=== PATIENT | female | born 1955 | race African-American/Black ===

== ENCOUNTER → 2017-12-01 | Outpatient (CLI) | payer OTHER | LOC: M RAD 12:53 | DX: Z12.31 Encounter for screening mammogram for malignant neoplasm of breast (principal) | CPT/HCPCS: 77067 ==

== ENCOUNTER → 2017-12-16 | Outpatient (CLI) | payer OTHER | LOC: M PLARAD 13:43 | DX: G43.909 Migraine, unspecified, not intractable, without status migrainosus (principal) | CPT/HCPCS: 70551 ==

== ENCOUNTER 2018-01-10 11:51 | Day surgery (SDC) | payer OTHER ==
[2018-01-10] MEDS: NS 1,000 ML IV (12:29)
[2018-01-10] MEDS ORDERED: PROPOFOL 500 MG/50 ML VIAL As Ordered (12:53)
[2018-01-10] MEDS ORDERED: LIDOCAINE 2% INJ 100 MG/5 ML SDV (FOR ANES.) As Ordered (12:53)
== END 2018-01-10 13:46 | disposition home or self-care (01) ==
LOC: M OPP 11:51
DX: Z12.11 Encounter for screening for malignant neoplasm of colon (principal); Z86.010 Personal history of colon polyps; D12.5 Benign neoplasm of sigmoid colon; K64.0 First degree hemorrhoids; I10 Essential (primary) hypertension; E03.9 Hypothyroidism, unspecified; K21.9 Gastro-esophageal reflux disease without esophagitis; R12 Heartburn; D56.9 Thalassemia, unspecified; M19.90 Unspecified osteoarthritis, unspecified site; M35.00 Sjogren syndrome, unspecified; G43.909 Migraine, unspecified, not intractable, without status migrainosus; Z78.0 Asymptomatic menopausal state; G47.30 Sleep apnea, unspecified; Z91.041 Radiographic dye allergy status; Z88.3 Allergy status to other anti-infective agents; Z88.8 Allergy status to other drugs, medicaments and biological substances; Z91.013 Allergy to seafood; Z79.82 Long term (current) use of aspirin; Z79.899 Other long term (current) drug therapy; Z80.3 Family history of malignant neoplasm of breast; Z80.0 Family history of malignant neoplasm of digestive organs
CPT/HCPCS: 45385

== ENCOUNTER → 2018-12-28 | Outpatient (CLI) | payer OTHER ==
[~2018-12-28] MED LIST: AMLO10TA PO; ASPI81TA26 PO; LEVO112T2 PO; METO50TA7 PO; MICA80TA PO; OMEP20CA4 PO; TOPA100T12 PO; VITA100067 PO
--- NOTE | 2018-12-28 14:04 | REPMRS ---
Patient History The patient states she has not had a clinical breast exam in over a year. Patient is postmenopausal. Family history of endometrial cancer at age 56 in sister, unknown cancer at age 53 in brother. Took estrogen for 7 months. 3D TOMOSYNTHESIS WAS PERFORMED. [facility] for breast cancer is 6.6%. Digital Mammo Screening Bilat: December 28, 2018 - Exam #: [id number] Bilateral CC and MLO view(s) were taken. Technologist: Gita Mcgee, Technologist Prior study comparison: December 01, 2017, bilateral digital mammo screening bilat performed at [facility]. March 19, 2015, bilateral digital mammo screening bilat performed at [facility]. FINDINGS: There are scattered fibroglandular densities. There has been no change in the appearance of the mammogram from the prior studies. There is a mild amount of residual fibroglandular tissue which is fairly symmetric. There is no interval development of dominant mass, architectural distortion, or clustered microcalcification suggestive of malignancy. Assessment: BI-RADS/ACR category 1 mammogram. Negative Mammogram. Recommendation Routine screening mammogram in 1 year (for women over age 40). This mammogram was interpreted with the aid of an FDA-approved computer-aided dectection system. Electronically Signed By: Gerson Murphy MD 12/28/18 [id number]
== END ==
LOC: M RAD 12-22 10:31
PROVIDERS: ATTEND Physician Assistant Medical
DX: Z12.31 Encounter for screening mammogram for malignant neoplasm of breast (principal); Z80.49 Family history of malignant neoplasm of other genital organs

== ENCOUNTER 2019-12-03 13:00 | Day surgery (SDC) | payer OTHER ==
[~2019-12-03] VITALS: Ht 162.6 cm; Wt 60.7 kg
[~2019-12-03 13:00] MED LIST changes: +DROX200C PO; +GABA-843 PO; +LEVO100T5 PO; +OMEP1CAP73 PO; -OMEP20CA4 PO; +SPIR-10 PO
[2019-12-03] MEDS ORDERED: NS 1,000 ML IV ONE (13:45)
[2019-12-03 15:35] VITALS: BP 168/96
--- NOTE | 2019-12-19 11:30 | ROOR ---
Patient Name: Michelle Johnson Procedure Date: 12/03/2019 2:45 PM Date of : 1955 Age: 64 Room: [facility] Gender: Female Note Status: Social Human Services Assistants Override Procedure: Upper GI endoscopy + Balloon Dilatation Indications: Dysphagia Providers: William Smalls MD Referring MD: Katie HAYNES [facility] Katie HAYNES [facility], Admin. Requesting Provider: Medicines: Monitored Anesthesia Care Complications: No immediate complications. Procedure: Pre-Anesthesia Assessment: - The heart rate, respiratory rate, oxygen saturations, blood pressure, adequacy of pulmonary ventilation, and response to care were monitored throughout the procedure. - The heart rate, respiratory rate, oxygen saturations, blood pressure, adequacy of pulmonary ventilation, and response to care were monitored throughout the procedure. The Endoscope was introduced through the mouth, and advanced to the second part of duodenum. The upper GI endoscopy was accomplished without difficulty. The patient tolerated the procedure well. Findings: The Z-line was irregular and was found 40 cm from the incisors. No other significant abnormalities were identified in a careful examination of the stomach. The exam of the duodenum was otherwise normal. A TTS dilator was passed through the scope. Dilation with a 12-13.5-15 mm balloon dilator was performed to 15 mm in the entire esophagus. The exam was otherwise without abnormality. Impression: - Z-line irregular, 40 cm from the incisors. - The examination was otherwise normal. - Dilation performed in the entire esophagus. - No specimens collected. - The examination was otherwise normal. Recommendation: - Patient has a contact number available for emergencies. The signs and symptoms of potential delayed complications were discussed with the patient. Return to normal activities tomorrow. Written discharge instructions were provided to the patient. - Discharge patient to home. - Follow an antireflux regimen. - Full liquid diet for 1 day. - Soft diet for 2 days, then advance as tolerated to resume previous diet. - Continue present medications. - Return to GI office in 2 months. - The findings and recommendations were discussed with the patient. William Smalls MD William Smalls MD 12/03/2019 2:58:37 PM Number of Addenda: 0 Note Initiated On: 12/03/2019 2:45 PM Estimated Blood Loss: Estimated blood loss: none.
== END 2019-12-03 15:40 | disposition home or self-care (01) ==
LOC: M OPP 13:00
PROVIDERS: ATTEND Internal Medicine Gastroenterology
DX: K22.8 Other specified diseases of esophagus (principal); R13.10 Dysphagia, unspecified; I10 Essential (primary) hypertension; G47.30 Sleep apnea, unspecified; Z79.82 Long term (current) use of aspirin; Z79.899 Other long term (current) drug therapy; Z88.8 Allergy status to other drugs, medicaments and biological substances; Z91.018 Allergy to other foods

== ENCOUNTER → 2020-02-27 | Outpatient (CLI) | payer OTHER ==
--- NOTE | 2020-02-29 23:46 | ECWPNPC ---
PATIENT NAME: KYLEIGH SKINNER : 1955 GENDER: FEMALE VISIT DATE: 02/27/2020 DISCHARGE DATE: 02/27/20 1149 VISIT LOCKED DATE TIME: PHYSICIAN: TSERING CORREA RESOURCE: TSERING CORREA REASON FOR APPOINTMENT 1. LEFT KNEES HISTORY OF PRESENT ILLNESS DEPRESSION SCREENING: PHQ-2 (2015 EDITION) LITTLE INTEREST OR PLEASURE IN DOING THINGS?NOT AT ALL FEELING DOWN, DEPRESSED, OR HOPELESS?NOT AT ALL TOTAL SCORE0 GENERAL: 64-YEAR-OLD FEMALE REFERRED BY [facility] FOR LEFT KNEE PAIN. HAD LEFT TOTAL KNEE REPLACEMENT APPROXIMATELY ONE YEAR AGO. REPORTING INTERMITTENT EPISODES 1 TIME A WEEK APPROXIMATELY OF LOCKING SENSATION WHEN SHE IS WALKING. ALSO COMPLAINING OF INTERMITTENT ACHING. PAIN IS AGGRAVATED BY PROLONGED WALKING OR STANDING. ALSO COMPLAINING OF NUMBNESS OVER THE LEFT KNEE. PAIN DOES NOT AWAKEN PATIENT AT NIGHT. CHIEF AREA OF PAIN IS ACTUALLY HER NECK BUT SHE IS NOT REFERRED HERE FOR THAT. SHE IS SCHEDULED FOR RIGHT KNEE TOTAL REPLACEMENT IN A FEW DAYS. DISCUSSED POSSIBILITY OF TRYING NERVE BLOCKS FOR HER CHRONIC LEFT KNEE PAIN. SHE WOULD LIKE TO THINK ABOUT THIS AND FOLLOW-UP WITH US AFTER RIGHT KNEE SURGERY. - - -. FALL RISK SCREENING: SCREENING :NO FALLS REPORTED IN THE LAST YEAR PAIN SCREENING: PATIENT HAS A COMPLAINT OF ACUTE OR CHRONIC PAIN :YES LOCATION OF PAIN:KNEES LEFT KNEE INTENSITY OF PAIN (SCALE OF 1 TO 10):7 WHAT DOES YOUR PAIN FEEL LIKE:ACHING, SHARP DULL ACHE DURATION:CONTINOUS PAIN IS INCREASED BY:ACTIVITIES, PROLONGED STANDING PAIN IS DECREASED BY:OTHERS ELEVATING THE KNEE, PAIN CREAM NURSING NOTE: - - -. PAIN CENTER INTAKE QUESTIONS: DO YOU HAVE A HISTORY OF MRSA? :NO DO YOU TAKE A BLOOD THINNERS? :NO DO YOU HAVE ANY BLEEDING DISORDERS? :NO ANY NEW NUMBNESS OR WEAKNESS IN YOUR LEGS OR ARMS? :YES LEFT ARM HEAVINESS/WEAKNESS AND NUMBNESS ANY PACEMAKER,DEFIBRILLATOR, OR DORSAL COLUMN STIMULATOR? :NO DO YOU HAVE ANY RASHES OR OPEN SORES? :NO ARE YOU ALLERGIC TO IV DYE? :YES ALLERGIC TO IODINE ARE YOU DIABETIC? :NO ANY NEW PROBLEMS WITH YOUR MEDICATIONS? :NO HAVE YOU RECEIVED A VACCINE IN THE PAST 30 DAYS? :YES IF SO WHAT VACCINE AND WHEN? FLU VACCINE BEGINNING OF JANUARY DO YOU PLAN TO RECEIVE A VACCINE IN THE NEXT 21 DAYS? :NO DO YOU NEED ANY PRESCRIPTION? :NO DO YOU TAKE ANY IMMUNOSUPPRESSIVE MEDICATIONS? :YES HYDROXYCHLOROQUIN CURRENT MEDICATIONS TAKING SYNTHROID 112 MCG TABLET 1 TABLET IN THE MORNING ON AN EMPTY STOMACH ORALLY ONCE A DAY TAKING ASPIRIN 81 MG TABLET CHEWABLE 1 TABLET ORALLY ONCE A DAY TAKING AMLODIPINE BESYLATE 10 MG TABLET 1 TABLET ORALLY ONCE A DAY TAKING SPIRONOLACTONE 25 MG TABLET 1 TABLET ORALLY DAILY TAKING METHOCARBAMOL 500 MG TABLET 0.5 TABLET IN AM, 1 TABLET AT BEDTIME ORALLY BID TAKING METOPROLOL TARTRATE 50 MG TABLET 1 TABLET WITH FOOD ORALLY TWICE A DAY TAKING GABAPENTIN 300 MG CAPSULE 1 CAPSULE IN AM, 2 CAPSULES AT BEDTIME ORALLY BID TAKING TELMISARTAN 80 MG TABLET 1 TABLET ORALLY ONCE A DAY TAKING VITAMIN B-2 100 MG TABLET 2 TABLETS IN AM, 2 TABLETS AT LUNCHTIME ORALLY BID TAKING HYDROXYCHLOROQUINE 200 MG 2 TABLETS M, W, F; 1 TABLET T, TH, S, SWENSON ORALLY DAILY MEDICATION LIST REVIEWED AND RECONCILED WITH THE PATIENT PAST MEDICAL HISTORY HYPOTHYROID HTN MIGRAINES SJOGREN'S SYNDROME ATHRITIS LEFT KNEE PAIN THALLESEMIA ALLERGIES LISINOPRIL: ANGIOEDEMA - ALLERGY IV CONTRAST DYE: ANAPHYLAXIS - ALLERGY SHELLFISH: ANAPHYLAXIS - ALLERGY HYDROCHLOROTHIAZIDE: HIVES, RASH SURGICAL HISTORY TOTAL LEFT KNEE REPLACEMENT 01/2019 LUMBAR DISCECTOMY - L4-5 2013 TUBAL LIGATION 1985 CATARACT SURGERY - LEFT 2012 CATARACT SURGERY - RIGHT 2013 FAMILY HISTORY FATHER: , ARTHRITIS, DIAGNOSED WITH HYPERTENSION, DIABETES MOTHER: , ENLARGED HEART, ARTHRITIS, HYPERTENSION 9 BROTHER(S) , 3 SISTER(S) . 2 SON(S) , 1 DAUGHTER(S) - HEALTHY. SIBLINGS - THYROID, HTN, DM, MS. SOCIAL HISTORY GENERAL: TOBACCO USE ARE YOU A:NONSMOKER LATEX QUESTIONNAIRE LATEX ALLERGY : HAVE YOU EVER DEVELOPED ANY TYPE OF REACTION AFTER HANDLING LATEX PRODUCTS SUCH RUBBER GLOVES, CONDOMS, DIAPHRAGMS, BALLOONS, SOCKS, OR UNDERWEAR?NO LATEX ALLERGY : HAVE YOU EVER DEVELOPED ANY TYPE OF REACTION DURING OR AFTER DENTAL APPOINTMENT, VAGINAL/RECTAL EXAMINATION, SURGICAL PROCEDURE, OR ANY OTHER EXPOSURE?NO LATEX RISK : HAVE YOU EVER HAD ANY DIFFICULTY BREATHING OR HIVES AFTER EATING OR HANDLING ANY FRUITS, OR VEGETABLES; SUCH KIWI, BANANAS, STONE FRUITS, OR CHESTNUTSNO LATEX RISK : DO YOU HAVE A PREVIOUS PERSONAL HISTORY OF MORE THAN NINE SURGERIES, SPINA BIFIDA, OR REPEATED CATHERIZATIONS? NO LATEX RISK : ARE YOU FREQUENTLY EXPOSED TO LATEX PRODUCTS IN YOUR OCCUPATION?NO DATE ASKED : 02/27/2020 ALCOHOL SCREENING DID YOU HAVE A DRINK CONTAINING ALCOHOL IN THE PAST YEAR?NO POINTS0 INTERPRETATIONNEGATIVE RECREATIONAL DRUG USE DRUG USE?NO CAFFEINE CAFFEINE USE?YES COFFEE: 3-4 CUPS/DAILY LANGUAGE LANGUAGES SPOKEN:MICRONESIAN LEARNING BARRIERS / SPECIAL NEEDS BARRIERS TO LEARNING?NO HEARING IMPAIRED?NO VISION IMPAIRED?YES :CORRECTIVE LENSES READING GLASSES ONLY COGNITIVELY IMPAIRED?NO READINESS TO LEARN?YES LEARNING PREFERENCES?NO LEARNING CAPABILITIES PRESENT?YES EMOTIONAL BARRIERS?NO SPECIAL DEVICES?NO 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 MARITAL STATUS: . PAIN CLINIC PFS, CLERGY, PUBLIC HEALTH REFERRALS HAS THE PATIENT BEEN EDUCATED REGARDING HIS/HER PLAN OF CARE?YES HAS THE PATIENT BEEN EDUCATED REGARDING PAIN, THE RISK FOR PAIN, THE IMPORTANCE OF EFFECTIVE PAIN MANAGEMENT, AND THE PAIN ASSESSMENT PROCESS?YES ADVANCE DIRECTIVE ADVANCE DIRECTIVE DISCUSSED WITH PATIENT:YES PATIENT HAS NO ADVANCED DIRECTIVES AND DECLINES INFORMATION ON HCP. HOSPITALIZATION/MAJOR DIAGNOSTIC PROCEDURE SURGERY RELATED REVIEW OF SYSTEMS CONSTITUTIONAL: ANY RECENT FEVER NO . CHILLS NO . WEIGHT CHANGE OF UNKNOWN REASONS NO . GASTROENTEROLOGY: NEW UNEXPLAINABLE CHANGES IN BOWEL CONTROL NO . CONSTIPATION NO . GENITOURINARY: ANY NEW CHANGE IN BLADDER CONTROL? NO . NEUROLOGY: NEW ONSET DIZZINESS OR NEUROLOGICAL CHANGES NOT MENTIONED NO . NEW NUMBNESS OR PAIN PATTERNS NOT MENTIONED AND PERTINENT TO TODAY'S VISIT NO . CARDIOLOGY: NEW CHEST PRESSURE NO . NEW CHEST PAIN NO . RESPIRATORY: UNEXPLAINABLE COUGH NO . NEW SHORTNESS OF BREATH NO . VITAL SIGNS WT 147.2 LBS, HT 64 IN, BMI 25.26 INDEX, BP 186/82 MM HG, REPEAT BP 170/92 MANUAL, RR 66 /MIN, TEMP 98.6 F, OXYGEN SAT % 100%, SAFE IN ENV? (Y/N) Y, NA INITIALS AR 10:37, REVIEWED BY: JSJ. KAL RN. EXAMINATION GENERAL EXAMINATION: GENERALNO ACUTE DISTRESS, WELL NOURISHED AND HYDRATED. PSYCHAPPROPRIATE MOOD AND AFFECT . FACE:UNREMARKABLE. NECK:NO LYMPHADENOPATHY, SUPPLE, . LUNGS:CLEAR TO AUSCULTATION BILATERALLY, NO WHEEZES, RHONCHI, RALES. HEART:NO MURMURS, REGULAR RATE AND RHYTHM. MUSCULOSKELETAL:NORMAL RANGE OF MOTION. EXTREMITIES:SWELLING APPRECIATED OVER LEFT KNEE. REPORTS TENDERNESS TO LIGHT PALPATION OVER LATERAL ASPECT OF LEFT KNEE . ASSESSMENTS LEFT KNEE PAIN, UNSPECIFIED CHRONICITY - M25.562 (PRIMARY) TREATMENT LEFT KNEE PAIN, UNSPECIFIED CHRONICITY NOTES: CONTINUE CARE WITH [facility]. FOLLOW-UP IS SCHEDULED IN 2 MONTHS. PROCEDURE CODES FA211 ESTABILISHED PATIENT [facility] FACILITY CHARGE DISPOSITION & COMMUNICATION FOLLOW UP 2 MONTHS (REASON: LEFT KNEE PAIN) ELECTRONICALLY SIGNED BY GOSIA FINCH ON 02/29/2020 AT 01:59 PM EST DISCLAIMER : THIS IS A VISIT SUMMARY EXTRACTED FROM THE [employer] CHART. IT IS NOT A COPY OF THE [employer] PROGRESS NOTE. IRASEMA
== END ==
LOC: M PAIN 10:30
PROVIDERS: ATTEND Nurse Practitioner Family
DX: M25.562 Pain in left knee (principal); E03.9 Hypothyroidism, unspecified; I10 Essential (primary) hypertension; G43.909 Migraine, unspecified, not intractable, without status migrainosus; Z79.82 Long term (current) use of aspirin; Z79.899 Other long term (current) drug therapy; Z88.8 Allergy status to other drugs, medicaments and biological substances; Z91.041 Radiographic dye allergy status; Z91.013 Allergy to seafood

== ENCOUNTER → 2020-02-28 | Outpatient (CLI) | payer OTHER ==
--- NOTE | 2020-02-28 16:35 | REPMRS ---
Patient History The patient states she has not had a clinical breast exam in over a year. Patient is postmenopausal. Family history of endometrial cancer at age 56 in sister, unknown cancer at age 53 in brother, breast cancer at age 38 in niece. Took estrogen for 7 months. 3D TOMOSYNTHESIS WAS PERFORMED. The [facility] lifetime risk for breast cancer is 8.5%. Volpara breast density b. Digital Woman Screen Mammo: February 28, 2020 - Exam #: [id number] Bilateral CC and MLO view(s) were taken. Technologist: RT Amber Prior study comparison: December 28, 2018, bilateral digital mammo screening bilat, performed at [facility]. December 01, 2017, bilateral digital mammo screening bilat, performed at [facility]. FINDINGS: There are scattered fibroglandular densities. There has been no change in the appearance of the mammogram from the prior studies. There is a mild amount of residual fibroglandular tissue which is fairly symmetric. There is no interval development of dominant mass, architectural distortion, or clustered microcalcification suggestive of malignancy. Assessment: BI-RADS/ACR category 1 mammogram. Negative Mammogram. Recommendation Routine screening mammogram in 1 year (for women over age 40). This mammogram was interpreted with the aid of an FDA-approved computer-aided dectection system. Electronically Signed By: Gerson Murphy MD 02/28/20 [id number]
== END ==
LOC: M WHC 15:47
PROVIDERS: ATTEND Physician Assistant Medical
DX: Z12.31 Encounter for screening mammogram for malignant neoplasm of breast (principal); Z80.49 Family history of malignant neoplasm of other genital organs

== ENCOUNTER → 2020-04-28 | Outpatient (CLI) | payer OTHER ==
[~2020-04-28] MED LIST changes: +GABA-282 PO; -GABA-843 PO
--- NOTE | 2020-05-01 05:18 | ECWPNPC ---
PATIENT NAME: KYLEIGH SKINNER : 1955 GENDER: FEMALE VISIT DATE: 04/28/2020 DISCHARGE DATE: 04/28/20 1440 VISIT LOCKED DATE TIME: PHYSICIAN: TSERING CORREA RESOURCE: TSERING CORREA REASON FOR APPOINTMENT 1. LEFT KNEE PAIN HISTORY OF PRESENT ILLNESS GENERAL: HERE FOR FOLLOW-UP OF PERSISTENT LEFT KNEE PAIN. HAD RIGHT KNEE REPLACEMENT RECENTLY.DOING FAIRLY WELL BUT CONTINUES WITH ACHING PAIN AT NIGHTTIME AROUND THE RIGHT KNEE. STATES LEFT KNEE IS NOT DOING TOO BAD. TODAY WE DISCUSSED THE POTENTIAL TO DO DIAGNOSTIC TESTING OVER THE LEFT KNEE TO CONSIDER RADIOFREQUENCY IF PAIN INCREASES OR INTERFERES WITH HER ACTIVITIES OF DAILY LIVING. AT THIS POINT SHE DOES NOT FEEL IT IS THAT PAINFUL OR BOTHERSOME. CHIEF COMPLAINT IS RIGHT CALF SWELLING IN PAIN. TODAY WE'VE ENCOURAGED HER TO HAVE THIS EVALUATED AT THE EMERGENCY ROOM AFTER OUR VISIT TODAY. IT WOULD BE MENDOZA TO RULE OUT BLOOD CLOT. -. FALL RISK SCREENING: SCREENING :NO FALLS REPORTED IN THE LAST YEAR PAIN SCREENING: PATIENT HAS A COMPLAINT OF ACUTE OR CHRONIC PAIN :YES LOCATION OF PAIN:KNEES LEFT KNEE & SOMETIMES RIGHT KNEE INTENSITY OF PAIN (SCALE OF 1 TO 10):4 WHAT DOES YOUR PAIN FEEL LIKE:ACHING, THROBBING DURATION:CONTINOUS, CONSTANT, ALL DAY PAIN IS INCREASED BY:ACTIVITIES, PROLONGED STANDING STAIRS PAIN IS DECREASED BY:OTHERS ICE PACK NURSING NOTE: -. PAIN CENTER INTAKE QUESTIONS: DO YOU HAVE A HISTORY OF MRSA? :NO DO YOU TAKE A BLOOD THINNERS? :NO DO YOU HAVE ANY BLEEDING DISORDERS? :NO ANY NEW NUMBNESS OR WEAKNESS IN YOUR LEGS OR ARMS? :NO ANY PACEMAKER,DEFIBRILLATOR, OR DORSAL COLUMN STIMULATOR? :NO DO YOU HAVE ANY RASHES OR OPEN SORES? :NO ARE YOU ALLERGIC TO IV DYE? :YES ALLERGIC TO IODINE ARE YOU DIABETIC? :NO ANY NEW PROBLEMS WITH YOUR MEDICATIONS? :NO HAVE YOU RECEIVED A VACCINE IN THE PAST 30 DAYS? :NO DO YOU PLAN TO RECEIVE A VACCINE IN THE NEXT 21 DAYS? :NO DO YOU NEED ANY PRESCRIPTION? :NO DO YOU TAKE ANY IMMUNOSUPPRESSIVE MEDICATIONS? :YES HYDROXYCHLOROQUIN CURRENT MEDICATIONS TAKING FOSAMAX 70 MG TABLET 1 TABLET 30 MINUTES BEFORE THE FIRST FOOD, BEVERAGE OR MEDICINE OF THE DAY WITH PLAIN WATER ORALLY TAKING SYNTHROID 112 MCG TABLET 1 TABLET IN THE MORNING ON AN EMPTY STOMACH ORALLY ONCE A DAY TAKING ASPIRIN 81 MG TABLET CHEWABLE 1 TABLET ORALLY ONCE A DAY TAKING AMLODIPINE BESYLATE 10 MG TABLET 1 TABLET ORALLY ONCE A DAY TAKING SPIRONOLACTONE 25 MG TABLET 1 TABLET ORALLY DAILY TAKING METHOCARBAMOL 500 MG TABLET 0.5 TABLET IN AM, 1 TABLET AT BEDTIME ORALLY BID TAKING METOPROLOL TARTRATE 50 MG TABLET 1 TABLET WITH FOOD ORALLY TWICE A DAY TAKING GABAPENTIN 300 MG CAPSULE 1 CAPSULE IN AM, 2 CAPSULES AT BEDTIME ORALLY BID TAKING TELMISARTAN 80 MG TABLET 1 TABLET ORALLY ONCE A DAY TAKING VITAMIN B-2 100 MG TABLET 2 TABLETS IN AM, 2 TABLETS AT LUNCHTIME ORALLY BID TAKING HYDROXYCHLOROQUINE 200 MG 2 TABLETS M, W, F; 1 TABLET T, TH, S, SWENSON ORALLY DAILY MEDICATION LIST REVIEWED AND RECONCILED WITH THE PATIENT PAST MEDICAL HISTORY HYPOTHYROID HTN MIGRAINES SJOGREN'S SYNDROME ATHRITIS LEFT KNEE PAIN THALLESEMIA ALLERGIES LISINOPRIL: ANGIOEDEMA - ALLERGY IV CONTRAST DYE: ANAPHYLAXIS - ALLERGY SHELLFISH: ANAPHYLAXIS - ALLERGY HYDROCHLOROTHIAZIDE: HIVES, RASH SURGICAL HISTORY TOTAL LEFT KNEE REPLACEMENT 01/2019 LUMBAR DISCECTOMY - L4-5 2013 TUBAL LIGATION 1985 CATARACT SURGERY - LEFT 2012 CATARACT SURGERY - RIGHT 2013 FAMILY HISTORY FATHER: , ARTHRITIS, DIAGNOSED WITH HYPERTENSION, DIABETES MOTHER: , ENLARGED HEART, ARTHRITIS, HYPERTENSION 9 BROTHER(S) , 3 SISTER(S) . 2 SON(S) , 1 DAUGHTER(S) - HEALTHY. SIBLINGS - THYROID, HTN, DM, MS. SOCIAL HISTORY GENERAL: TOBACCO USE ARE YOU A:NONSMOKER LATEX QUESTIONNAIRE LATEX ALLERGY : HAVE YOU EVER DEVELOPED ANY TYPE OF REACTION AFTER HANDLING LATEX PRODUCTS SUCH RUBBER GLOVES, CONDOMS, DIAPHRAGMS, BALLOONS, SOCKS, OR UNDERWEAR?NO LATEX ALLERGY : HAVE YOU EVER DEVELOPED ANY TYPE OF REACTION DURING OR AFTER DENTAL APPOINTMENT, VAGINAL/RECTAL EXAMINATION, SURGICAL PROCEDURE, OR ANY OTHER EXPOSURE?NO LATEX RISK : HAVE YOU EVER HAD ANY DIFFICULTY BREATHING OR HIVES AFTER EATING OR HANDLING ANY FRUITS, OR VEGETABLES; SUCH KIWI, BANANAS, STONE FRUITS, OR CHESTNUTSNO LATEX RISK : DO YOU HAVE A PREVIOUS PERSONAL HISTORY OF MORE THAN NINE SURGERIES, SPINA BIFIDA, OR REPEATED CATHERIZATIONS? NO LATEX RISK : ARE YOU FREQUENTLY EXPOSED TO LATEX PRODUCTS IN YOUR OCCUPATION?NO DATE ASKED : 04/28/2020 ALCOHOL SCREENING DID YOU HAVE A DRINK CONTAINING ALCOHOL IN THE PAST YEAR?NO POINTS0 INTERPRETATIONNEGATIVE RECREATIONAL DRUG USE DRUG USE?NO CAFFEINE CAFFEINE USE?YES COFFEE: 3-4 CUPS/DAILY LANGUAGE LANGUAGES SPOKEN:SPANISH LEARNING BARRIERS / SPECIAL NEEDS BARRIERS TO LEARNING?NO HEARING IMPAIRED?NO VISION IMPAIRED?YES :CORRECTIVE LENSES READING GLASSES ONLY COGNITIVELY IMPAIRED?NO READINESS TO LEARN?YES LEARNING PREFERENCES?NO LEARNING CAPABILITIES PRESENT?YES EMOTIONAL BARRIERS?NO SPECIAL DEVICES?NO 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 MARITAL STATUS: . PAIN CLINIC PFS, CLERGY, PUBLIC HEALTH REFERRALS HAS THE PATIENT BEEN EDUCATED REGARDING HIS/HER PLAN OF CARE?YES HAS THE PATIENT BEEN EDUCATED REGARDING PAIN, THE RISK FOR PAIN, THE IMPORTANCE OF EFFECTIVE PAIN MANAGEMENT, AND THE PAIN ASSESSMENT PROCESS?YES ADVANCE DIRECTIVE ADVANCE DIRECTIVE DISCUSSED WITH PATIENT:YES PATIENT HAS NO ADVANCED DIRECTIVES AND DECLINES INFORMATION ON HCP. HOSPITALIZATION/MAJOR DIAGNOSTIC PROCEDURE SURGERY RELATED REVIEW OF SYSTEMS CONSTITUTIONAL: ANY RECENT FEVER NO . CHILLS NO . WEIGHT CHANGE OF UNKNOWN REASONS NO . GASTROENTEROLOGY: NEW UNEXPLAINABLE CHANGES IN BOWEL CONTROL NO . CONSTIPATION NO . GENITOURINARY: ANY NEW CHANGE IN BLADDER CONTROL? NO . NEUROLOGY: NEW ONSET DIZZINESS OR NEUROLOGICAL CHANGES NOT MENTIONED NO . NEW NUMBNESS OR PAIN PATTERNS NOT MENTIONED AND PERTINENT TO TODAY'S VISIT NO . CARDIOLOGY: NEW CHEST PRESSURE NO . NEW CHEST PAIN NO . RESPIRATORY: UNEXPLAINABLE COUGH NO . NEW SHORTNESS OF BREATH NO . VITAL SIGNS WT 150 LBS, HT 64 IN, BMI 25.74 INDEX, BP 156/74 MM HG, HR 18 /MIN, RR 74 /MIN, TEMP 96.8 F, OXYGEN SAT % 93, SAFE IN ENV? (Y/N) YESTSERING CORREA BUS PERSON DISHWASHER IS AWARE OF B/P.T.ALANA MT. EXAMINATION GENERAL EXAMINATION: GENERALAWAKE,ALERT ,PLEASANT . PSYCHAFFECT NORMAL . LUNGS:LUNG PHELPS ARE CLEAR TO AUSCULTATION BILATERALLY. GOOD MOVEMENT OF AIR . HEART:S1, S2 IN A REGULAR RATE AND RHYTHM. NO SIGNIFICANT MURMURS, RUBS OR GALLOPS NOTED . ASSESSMENTS LEFT KNEE PAIN, UNSPECIFIED CHRONICITY - M25.562 (PRIMARY) TREATMENT LEFT KNEE PAIN, UNSPECIFIED CHRONICITY CLINICAL NOTES: PATIENT WILL CALL US FOR A FOLLOW-UP APPOINTMENT IF SHE WOULD LIKE TO CONSIDER INTERVENTIONAL THERAPY, COOL RF LEFT KNEE. PROCEDURE CODES FA211 ESTABILISHED PATIENT [facility] CHARGE DISPOSITION & COMMUNICATION FOLLOW UP PATIENT WILL CALL IF NEEDED (REASON: LEFT KNEE PAIN/CONSIDER COOL RF) ELECTRONICALLY SIGNED BY GOSIA FINCH ON 04/30/2020 AT 10:24 AM EST DISCLAIMER : THIS IS A VISIT SUMMARY EXTRACTED FROM THE [employer] CHART. IT IS NOT A COPY OF THE [employer] PROGRESS NOTE. IRASEMA
== END ==
LOC: M PAIN 14:00
PROVIDERS: ATTEND Nurse Practitioner Family
DX: M25.562 Pain in left knee (principal); Z96.651 Presence of right artificial knee joint; E03.9 Hypothyroidism, unspecified; I10 Essential (primary) hypertension; M35.00 Sjogren syndrome, unspecified; D56.9 Thalassemia, unspecified; Z79.82 Long term (current) use of aspirin; Z79.899 Other long term (current) drug therapy; Z88.8 Allergy status to other drugs, medicaments and biological substances; Z91.041 Radiographic dye allergy status; Z91.013 Allergy to seafood

== ENCOUNTER → 2021-04-09 | Outpatient (CLI) | payer OTHER ==
--- NOTE | 2021-04-09 12:05 | REPMRS ---
Patient History The patient states she has not had a clinical breast exam in over a year. Patient is postmenopausal. Family history of endometrial cancer at age 56 in sister, unknown cancer at age 53 in brother, breast cancer at age 38 in niece. Benign excisional biopsy of the right breast, 2007. Took estrogen for 7 months. Tomosynthesis is performed. Volpara breast density is a. [facility] lifetime risk of breast cancer 8.1%. Patient states no breast complaints today. Patient has signed MRS History Sheet. Digital Woman Screen Mammo: April 09, 2021 - Exam #: [id number] Bilateral CC and MLO view(s) were taken. Technologist: Celia Celaya, Technologist Prior study comparison: February 28, 2020, bilateral digital woman screen mammo performed at [facility]. December 28, 2018, bilateral digital mammo screening bilat, performed at [facility]. FINDINGS: There are scattered fibroglandular densities. There has been no change in the appearance of the mammogram from the prior studies. There is a mild amount of residual fibroglandular tissue which is fairly symmetric. There is no interval development of dominant mass, architectural distortion, or clustered microcalcification suggestive of malignancy. Assessment: BI-RADS/ACR category 1 mammogram. Negative Mammogram. Recommendation Routine screening mammogram in 1 year (for women over age 40). This mammogram was interpreted with the aid of an FDA-approved computer-aided dectection system. Electronically Signed By: Gerson Murphy MD 04/09/21 9149
== END ==
LOC: M WHC 10:57
PROVIDERS: ATTEND Physician Assistant Medical
DX: Z12.31 Encounter for screening mammogram for malignant neoplasm of breast (principal)

== ENCOUNTER → 2022-01-20 | Outpatient (CLI) | payer OTHER | LOC: M PAIN 13:00 | PROVIDERS: ATTEND Nurse Practitioner Family | DX: M79.18 Myalgia, other site (principal); E03.9 Hypothyroidism, unspecified; I10 Essential (primary) hypertension; G43.909 Migraine, unspecified, not intractable, without status migrainosus; M35.00 Sjogren syndrome, unspecified; M19.90 Unspecified osteoarthritis, unspecified site; M25.562 Pain in left knee; D56.9 Thalassemia, unspecified; G47.30 Sleep apnea, unspecified; M85.80 Other specified disorders of bone density and structure, unspecified site; E55.9 Vitamin D deficiency, unspecified; M06.9 Rheumatoid arthritis, unspecified; Z79.1 Long term (current) use of non-steroidal anti-inflammatories (NSAID); Z79.890 Hormone replacement therapy; Z79.82 Long term (current) use of aspirin; Z79.899 Other long term (current) drug therapy; Z88.8 Allergy status to other drugs, medicaments and biological substances; Z91.041 Radiographic dye allergy status; Z91.013 Allergy to seafood ==

== ENCOUNTER → 2022-03-17 | Outpatient (CLI) | payer OTHER ==
[~2022-03-17] MED LIST changes: +ALEN70TA82 PO; +CHOL10007 PO; +HYDR100T33 PO; +LEVO88TA3 PO; +OMEP40CA4 PO; +OYST500T92 PO; +TOPA1TAB PO
== END ==
LOC: M LABSMTC 10:28
PROVIDERS: ATTEND Anesthesiology
DX: Z01.812 Encounter for preprocedural laboratory examination (principal); Z11.52 Encounter for screening for COVID-19

== ENCOUNTER 2022-03-22 09:23 | Day surgery (SDC) | payer OTHER ==
[~2022-03-22] VITALS: Ht 162.6 cm; Wt 77.6 kg
[~2022-03-22 09:23] MED LIST changes: +NS 1,000 ML IV ONE
[2022-03-22] MEDS ORDERED: fentaNYL 100 MCG/2 ML INJECTION As Ordered ONE (10:56)
[2022-03-22] MEDS ORDERED: propofoL 200 MG/20 ML VIAL As Ordered ONE (10:56)
[2022-03-22] MEDS ORDERED: LIDOCAINE 2% 100MG/5ML SDV (FOR ANES.) As Ordered ONE (10:56)
[2022-03-22 11:42] VITALS: BP 142/82
== END 2022-03-22 11:48 | disposition home or self-care (01) ==
LOC: M OPP 09:23
PROVIDERS: ATTEND Internal Medicine Gastroenterology
DX: Z12.11 Encounter for screening for malignant neoplasm of colon (principal); Z86.010 Personal history of colon polyps; K64.0 First degree hemorrhoids; K57.30 Diverticulosis of large intestine without perforation or abscess without bleeding; K22.2 Esophageal obstruction; Z79.899 Other long term (current) drug therapy; Z88.6 Allergy status to analgesic agent; Z88.8 Allergy status to other drugs, medicaments and biological substances; Z91.013 Allergy to seafood; Z91.041 Radiographic dye allergy status; I10 Essential (primary) hypertension; E03.9 Hypothyroidism, unspecified; D56.9 Thalassemia, unspecified; M35.00 Sjogren syndrome, unspecified; G47.30 Sleep apnea, unspecified; Z99.89 Dependence on other enabling machines and devices
CPT/HCPCS: 43235; 45378; J3010

== ENCOUNTER → 2022-05-06 | Outpatient (CLI) | payer MEDICARE, OTHER ==
[~2022-05-06] MED LIST changes: -NS 1,000 ML IV ONE
== END ==
LOC: M WHC 10:20
PROVIDERS: ATTEND Physician Assistant Medical
DX: Z12.31 Encounter for screening mammogram for malignant neoplasm of breast (principal)

== ENCOUNTER → 2023-05-09 | Outpatient (CLI) | payer OTHER, MEDICARE | LOC: M WHC 10:27 | PROVIDERS: ATTEND Physician Assistant Medical | DX: Z12.31 Encounter for screening mammogram for malignant neoplasm of breast (principal) ==

== ENCOUNTER 2023-07-14 07:23 | Day surgery (SDC) | payer MEDICARE, OTHER ==
[~2023-07-14] VITALS: Ht 160 cm; Wt 77.1 kg
[~2023-07-14 07:23] MED LIST changes: +UBRO100T PO
[2023-07-14] MEDS ORDERED: LR 1,000 ML IV SCH ×2 (08:10→09:55)
[2023-07-14] MEDS: ceFAZolin SOD 2 GM in IV 1 EA IV ONE (08:34)
[2023-07-14] MEDS ORDERED: LIDOCAINE 2% 100MG/5ML SDV (FOR ANES.) As Ordered ONE (08:37)
[2023-07-14] MEDS ORDERED: fentaNYL 100 MCG/2 ML INJECTION As Ordered ONE (08:37)
[2023-07-14] MEDS ORDERED: ONDANSETRON 4MG 2ML VIAL As Ordered ONE (08:37)
[2023-07-14] MEDS ORDERED: KETOROLAC 60MG 2ML VIAL As Ordered ONE (08:37)
[2023-07-14] MEDS ORDERED: propofoL 200 MG/20 ML VIAL As Ordered ONE (08:37)
[2023-07-14] MEDS ORDERED: MIDAZOLAM INJ 2MG/2ML VIAL As Ordered ONE (08:37)
[2023-07-14] MEDS: LIDOCAINE 1% SDV 30ML VIAL As Ordered ONE (09:38)
[2023-07-14] MEDS ORDERED: fentaNYL 100 MCG/2 ML INJECTION IV PRN (09:55)
[2023-07-14] MEDS ORDERED: oxyCODONE 5MG TAB PO PRN (09:55)
[2023-07-14] MEDS ORDERED: ONDANSETRON 4MG 2ML VIAL IV PRN (09:55)
[2023-07-14] MEDS ORDERED: HYDROMORPHONE HCL 0.5 MG/ 0.5 ML SYRINGE IV PRN (09:55)
[2023-07-14 11:36] VITALS: BP 122/69; TEMP 97.3; O2SAT 99
== END 2023-07-14 11:58 | disposition home or self-care (01) ==
LOC: M SDC 07:23
PROVIDERS: ATTEND Podiatrist Foot & Ankle Surgery
DX: M20.11 Hallux valgus (acquired), right foot (principal); M21.611 Bunion of right foot; I10 Essential (primary) hypertension; E03.9 Hypothyroidism, unspecified; M35.00 Sjogren syndrome, unspecified; G47.30 Sleep apnea, unspecified; Z79.890 Hormone replacement therapy; Z79.899 Other long term (current) drug therapy; K21.9 Gastro-esophageal reflux disease without esophagitis; Z88.8 Allergy status to other drugs, medicaments and biological substances; Z91.041 Radiographic dye allergy status; Z91.013 Allergy to seafood
CPT/HCPCS: 28297; 76000; C1713; J0665; J0690; J1100; J1885; J2250; J2405; J3010

== ENCOUNTER → 2024-05-11 | Outpatient (CLI) | payer OTHER, MEDICARE ==
[~2024-05-11] MED LIST changes: +GABA-1172 PO; -GABA-282 PO
== END ==
LOC: M WHC 14:20
PROVIDERS: ATTEND Physician Assistant Medical
DX: Z12.31 Encounter for screening mammogram for malignant neoplasm of breast (principal); R92.313 Mammographic fatty tissue density, bilateral breasts

== ENCOUNTER 2024-10-22 09:48 | Day surgery (SDC) | payer MEDICARE, OTHER ==
[~2024-10-22] VITALS: Ht 162.6 cm; Wt 73.2 kg
[~2024-10-22 09:48] MED LIST changes: +AMLO-751 PO; -AMLO10TA PO; -DROX200C PO; +HYDR200C PO; +LIDOCAINE 2% 100 MG/5 ML SDV (FOR ANES.) As Ordered ONE
[2024-10-22 13:00] VITALS: TEMP 97.5
[2024-10-22 13:15] VITALS: BP 139/79; O2SAT 94
== END 2024-10-22 13:18 | disposition home or self-care (01) ==
LOC: M OPP 09:48
PROVIDERS: ATTEND Internal Medicine Gastroenterology
DX: K22.2 Esophageal obstruction (principal); R13.10 Dysphagia, unspecified; G47.30 Sleep apnea, unspecified; Z88.8 Allergy status to other drugs, medicaments and biological substances; Z91.013 Allergy to seafood; Z91.041 Radiographic dye allergy status; Z79.899 Other long term (current) drug therapy
CPT/HCPCS: 43249; J3010

== ENCOUNTER 2024-10-24 07:01 | Day surgery (SDC) | payer OTHER, MEDICARE ==
[~2024-10-24] VITALS: Ht 162.6 cm; Wt 72.6 kg
[~2024-10-24 07:01] MED LIST changes: -LIDOCAINE 2% 100 MG/5 ML SDV (FOR ANES.) As Ordered ONE; +LR 1,000 ML IV SCH
[2024-10-24] MEDS ORDERED: dexAMETHasone 4 MG/ML 1 ML VIAL As Ordered ONE (07:42)
[2024-10-24] MEDS ORDERED: LIDOCAINE 2% 100 MG/5 ML SDV (FOR ANES.) As Ordered ONE (07:43)
[2024-10-24] MEDS ORDERED: ONDANSETRON 4MG 2ML VIAL As Ordered ONE (07:43)
[2024-10-24] MEDS ORDERED: MIDAZOLAM INJ 2 MG/2 ML VIAL As Ordered ONE (08:00)
[2024-10-24] MEDS ORDERED: ROCURONIUM BROMIDE 50MG/5ML VIAL As Ordered ONE (08:01)
[2024-10-24] MEDS: ceFAZolin SOD 2 GM IV ONCE IV ONE (08:34)
[2024-10-24] MEDS: LIDOCAINE 1% MDV 20 ML VIAL As Ordered ONE (08:40)
[2024-10-24] MEDS ORDERED: ACETAMINOPHEN 1000MG/100ML IV BAG As Ordered ONE (08:54)
[2024-10-24] MEDS ORDERED: SUGAMMADEX SODIUM 500 MG/5 ML VIAL As Ordered ONE (09:14)
[2024-10-24] MEDS ORDERED: LR 1,000 ML IV SCH (09:50)
[2024-10-24] MEDS ORDERED: ONDANSETRON 4MG 2ML VIAL IV PRN (09:50)
[2024-10-24] MEDS ORDERED: HYDROMORPHONE HCL 0.5 MG/0.5 ML SYRINGE IV PRN (09:50)
[2024-10-24 11:14] VITALS: BP 138/79; TEMP 96.6; O2SAT 96
== END 2024-10-24 11:22 | disposition home or self-care (01) ==
LOC: M SDC 07:01
PROVIDERS: ATTEND Podiatrist Foot & Ankle Surgery
DX: M20.12 Hallux valgus (acquired), left foot (principal); M21.612 Bunion of left foot; M32.9 Systemic lupus erythematosus, unspecified; I10 Essential (primary) hypertension; E03.9 Hypothyroidism, unspecified; G62.9 Polyneuropathy, unspecified; M35.00 Sjogren syndrome, unspecified; G47.30 Sleep apnea, unspecified; Z79.899 Other long term (current) drug therapy; Z79.890 Hormone replacement therapy; K21.9 Gastro-esophageal reflux disease without esophagitis; Z88.5 Allergy status to narcotic agent; Z91.013 Allergy to seafood; Z91.041 Radiographic dye allergy status; Z96.653 Presence of artificial knee joint, bilateral
CPT/HCPCS: 28297; 76000; C1713; J0131; J0665; J0690; J1100; J2250; J2405; J3010